=== PATIENT | female | born 1945 | race Caucasian/White ===

== ENCOUNTER 2017-11-25 08:01 | Emergency (ER) | payer MEDICAID | END 2017-11-25 08:59 | disposition home or self-care (01) | LOC: FTE 08:01 | DX: J20.9 Acute bronchitis, unspecified (principal); I10 Essential (primary) hypertension; Z79.82 Long term (current) use of aspirin | CPT/HCPCS: 99284; Z7502 ==

== ENCOUNTER 2017-11-30 11:30 | Emergency (ER) | payer MEDICAID ==
[2017-11-30] MEDS: IPRATROPIUM (NEB) 0.5 MG/2.5 ML AMP HHN (12:07)
[2017-11-30] MEDS: ALBUTEROL 0.083% (NEB) 2.5 MG/3 ML AMP HHN (12:07)
== END 2017-11-30 13:33 | disposition home or self-care (01) ==
LOC: FTE 11:30
DX: J06.9 Acute upper respiratory infection, unspecified (principal); I10 Essential (primary) hypertension; E11.9 Type 2 diabetes mellitus without complications; Z79.82 Long term (current) use of aspirin
CPT/HCPCS: 71045; 94664; 99284-25

== ENCOUNTER 2017-12-09 10:33 | Emergency (ER) | payer MEDICAID ==
[2017-12-09] MEDS: SOD CHLORIDE 0.9% 500 ML IV (11:14)
[2017-12-09 11:18] LABS: ADD MAN DIFF? NO
[2017-12-09 11:21] LABS: WHITE BLOOD COUNT 6.6 10^3/ul (4.8-10.8)
[2017-12-09 11:21] LABS: BASOPHIL # 0.1 10^3/ul (0.0-0.1); BASOPHILS % 0.8 % (0.0-2.0); EOSINOPHILS # 0.1 10^3/ul (0.0-0.5); EOSINOPHILS % 1.4 % (0.0-7.0); HEMATOCRIT 36.1 % (37.0-47.0); HEMOGLOBIN 12.4 g/dl (12.0-16.0); LYMPHOCYTES # 1.1 10^3/ul (0.8-2.9); LYMPHOCYTES % 16.1 % (15.0-51.0); MEAN CORPUSCULAR HEMOGLOBIN 31.8 pg (29.0-33.0); MEAN CORPUSCULAR HGB CONC 34.3 g/dl (32.0-37.0); MEAN CORPUSCULAR VOLUME 92.6 fl (82.0-101.0); MEAN PLATELET VOLUME 9.7 fl (7.4-10.4); MONOCYTE # 0.7 10^3/ul (0.3-0.9); MONOCYTES % 9.9 % (0.0-11.0); NEUTROPHIL # 4.7 10^3/ul (1.6-7.5); NEUTROPHILS % 71.5 % (39.0-77.0); PLATELET COUNT 222 10^3/UL (140-415)
[2017-12-09 11:39] LABS: ALANINE AMINOTRANSFERASE 29 IU/L (13-69); ALBUMIN 3.9 g/dl (3.3-4.9); ALKALINE PHOSPHATASE 80 IU/L (42-121); ANION GAP 14 (8-16); ASPARTATE AMINO TRANSFERASE 18 IU/L (15-46); BILIRUBIN,INDIRECT 0.8 mg/dl (0-1.1); BILIRUBIN,TOTAL 0.8 mg/dl (0.2-1.3); BLOOD UREA NITROGEN 10 mg/dl (7-20); CALCIUM 8.9 mg/dl (8.4-10.2); CARBON DIOXIDE 26 mmol/L (21-31); CHLORIDE 103 mmol/L (97-110); CREATININE 0.64 mg/dl (0.44-1.00); GLUCOSE 140 mg/dl (70-220); POTASSIUM 3.5 mmol/L (3.5-5.1); SODIUM 139 mmol/L (135-144); TOTAL PROTEIN 6.9 g/dl (6.1-8.1)
[2017-12-09 11:42] LABS: INR 0.96; PROTIME 12.9 Sec (11.9-14.9)
[2017-12-09 11:44] LABS: LACTIC ACID 1.8 mmol/L (0.5-2.0)
[2017-12-09 12:03] LABS: TROPONIN-I < 0.120 ng/ml (0.00-0.12)
[2017-12-09] MEDS: METHYLPREDNISOLONE 125 MG INJ IV (12:13)
[2017-12-09] MEDS: IPRATROPIUM (NEB) 0.5 MG/2.5 ML AMP INH (12:13)
[2017-12-09] MEDS: ALBUTEROL 0.5% (NEB) 2.5 MG/0.5 ML AMP INH (12:13)
[2017-12-09 12:21] LABS: ADD UMIC YES; UR ASCORBIC ACID NEGATIVE (NEGATIVE); UR BILIRUBIN (Dip) NEGATIVE (NEGATIVE); UR BLOOD (Dip) 1+ mg/dL (NEGATIVE); UR CLARITY CLEAR (CLEAR); UR COLOR YELLOW (YELLOW); UR GLUCOSE (Dip) NEGATIVE (NEGATIVE); UR KETONES (Dip) NEGATIVE (NEGATIVE); UR LEUKOCYTE ESTERASE (Dip) NEGATIVE Leu/ul (NEGATIVE); UR MUCUS FEW /HPF (NONE SEEN); UR NITRITE (Dip) NEGATIVE (NEGATIVE); UR RBC 2 /HPF (0-5); UR SPECIFIC GRAVITY (Dip) 1.008 (1.003-1.030); UR TOTAL PROTEIN (Dip) NEGATIVE (NEGATIVE); UR UROBILINOGEN (Dip) NEGATIVE (NEGATIVE); UR WBC 0 /HPF (0-5)
== END 2017-12-09 13:51 | disposition home or self-care (01) ==
LOC: E/R 10:33
DX: J18.1 Lobar pneumonia, unspecified organism (principal); J20.9 Acute bronchitis, unspecified; I10 Essential (primary) hypertension; R07.9 Chest pain, unspecified; R53.83 Other fatigue; Z79.82 Long term (current) use of aspirin
CPT/HCPCS: 36415; 71045; 80053; 81001; 83605; 84484; 85025; 85610; 85730; 87040; 87086; 87400; 93005; 94644; 96374; 99285-25

== ENCOUNTER 2017-12-11 15:12 | Inpatient (IN) | payer MEDICAID ==
[2017-12-11] MEDS: AZITHROMYCIN 500MG/NS (PMX) 250 ML IVPB (16:14)
[2017-12-11] MEDS: SOD CHLORIDE 0.9% 500 ML IV (16:14)
[2017-12-11] MEDS: ALBUTEROL 0.083% (NEB) 2.5 MG/3 ML AMP NEB (16:38)
[2017-12-11] MEDS: IPRATROPIUM (NEB) 0.5 MG/2.5 ML AMP NEB (16:38)
[2017-12-11 16:42] LABS: ADD MAN DIFF? NO
[2017-12-11 16:44] LABS: BASOPHILS % 0.2 % (0.0-2.0); HEMATOCRIT 37.1 % (37.0-47.0); HEMOGLOBIN 12.5 g/dl (12.0-16.0); LYMPHOCYTES # 2.5 10^3/ul (0.8-2.9); LYMPHOCYTES % 19.5 % (15.0-51.0); MEAN CORPUSCULAR HEMOGLOBIN 31.2 pg (29.0-33.0); MEAN CORPUSCULAR HGB CONC 33.7 g/dl (32.0-37.0); MEAN CORPUSCULAR VOLUME 92.5 fl (82.0-101.0); MEAN PLATELET VOLUME 10.1 fl (7.4-10.4); MONOCYTES % 8.1 % (0.0-11.0); NEUTROPHIL # 9.1 10^3/ul (1.6-7.5); NEUTROPHILS % 71.7 % (39.0-77.0); PLATELET COUNT 274 10^3/UL (140-415); RED BLOOD COUNT 4.01 10^6/ul (4.20-5.40); RED CELL DISTRIBUTION WIDTH 13.3 % (11.5-14.5)
[2017-12-11 16:44] LABS: WHITE BLOOD COUNT 12.7 10^3/ul (4.8-10.8)
[2017-12-11 17:03] LABS: LACTIC ACID 1.5 mmol/L (0.5-2.0)
[2017-12-11 17:04] LABS: ANION GAP 13 (8-16); BLOOD UREA NITROGEN 18 mg/dl (7-20); CALCIUM 8.6 mg/dl (8.4-10.2); CARBON DIOXIDE 28 mmol/L (21-31); CHLORIDE 104 mmol/L (97-110); CREATININE 0.81 mg/dl (0.44-1.00); GLUCOSE 115 mg/dl (70-220); POTASSIUM 3.4 mmol/L (3.5-5.1); SODIUM 142 mmol/L (135-144)
[2017-12-11 17:58] LABS: ADD UMIC YES; UR ASCORBIC ACID NEGATIVE (NEGATIVE); UR BACTERIA FEW /HPF (NONE SEEN); UR BILIRUBIN (Dip) NEGATIVE (NEGATIVE); UR BLOOD (Dip) 1+ mg/dL (NEGATIVE); UR CLARITY CLEAR (CLEAR); UR COLOR COLORLESS (YELLOW); UR GLUCOSE (Dip) NEGATIVE (NEGATIVE); UR KETONES (Dip) NEGATIVE (NEGATIVE); UR LEUKOCYTE ESTERASE (Dip) NEGATIVE Leu/ul (NEGATIVE); UR NITRITE (Dip) NEGATIVE (NEGATIVE); UR RBC 0 /HPF (0-5); UR SPECIFIC GRAVITY (Dip) 1.005 (1.003-1.030); UR TOTAL PROTEIN (Dip) NEGATIVE (NEGATIVE); UR UROBILINOGEN (Dip) NEGATIVE (NEGATIVE); UR WBC 0 /HPF (0-5)
[2017-12-11] MEDS: VANCOMYCIN 1.5 GM in SOD CHLORIDE 0.9% 250 ML IVPB (18:09)
[2017-12-11] MEDS: ALBUTEROL 0.083% (NEB) 2.5 MG/3 ML AMP HHN (18:54)
[2017-12-11] MEDS: IPRATROPIUM (NEB) 0.5 MG/2.5 ML AMP HHN (18:54)
[2017-12-11] MEDS: POTASSIUM CHLORIDE 30 MEQ in SOD CHLORIDE 0.45% 1,000 ML IV (18:55)
[2017-12-11] MEDS ORDERED: NACL 0.9% 3 ML SYG IV (19:30)
[2017-12-11] MEDS: HYDROCODONE/APAP (5/325) TAB PO (19:49)
[2017-12-11] MEDS: ACETAMINOPHEN 325 MG TAB PO (19:49)
[2017-12-11] MEDS: CEFTRIAXONE 1 GM/50 ML (PMX) 50 ML IV (21:40)
[2017-12-12 06:09] LABS: ADD MAN DIFF? NO
[2017-12-12 06:21] LABS: BASOPHILS % 0.4 % (0.0-2.0); EOSINOPHILS % 0.4 % (0.0-7.0); HEMATOCRIT 33.8 % (37.0-47.0); HEMOGLOBIN 11.3 g/dl (12.0-16.0); LYMPHOCYTES # 1.1 10^3/ul (0.8-2.9); LYMPHOCYTES % 20.2 % (15.0-51.0); MEAN CORPUSCULAR HEMOGLOBIN 31.3 pg (29.0-33.0); MEAN CORPUSCULAR HGB CONC 33.4 g/dl (32.0-37.0); MEAN CORPUSCULAR VOLUME 93.6 fl (82.0-101.0); MEAN PLATELET VOLUME 10.2 fl (7.4-10.4); MONOCYTE # 0.5 10^3/ul (0.3-0.9); MONOCYTES % 8.9 % (0.0-11.0); NEUTROPHIL # 3.9 10^3/ul (1.6-7.5); NEUTROPHILS % 69.7 % (39.0-77.0); PLATELET COUNT 213 10^3/UL (140-415); RED BLOOD COUNT 3.61 10^6/ul (4.20-5.40); RED CELL DISTRIBUTION WIDTH 13.4 % (11.5-14.5)
[2017-12-12 06:21] LABS: WHITE BLOOD COUNT 5.6 10^3/ul (4.8-10.8)
[2017-12-12 06:58] LABS: ANION GAP 14 (8-16); BLOOD UREA NITROGEN 9 mg/dl (7-20); CALCIUM 7.6 mg/dl (8.4-10.2); CARBON DIOXIDE 29 mmol/L (21-31); CHLORIDE 103 mmol/L (97-110); GLUCOSE 88 mg/dl (70-220); MAGNESIUM 1.8 mg/dl (1.7-2.5); PHOSPHORUS 2.9 mg/dl (2.5-4.9); POTASSIUM 3.7 mmol/L (3.5-5.1); SODIUM 142 mmol/L (135-144)
[2017-12-12] MEDS: AZITHROMYCIN 250 MG TAB PO (11:47)
[2017-12-12] MEDS: LORATADINE 10 MG TAB PO (11:47)
[2017-12-12] MEDS: AMLODIPINE 5 MG TAB PO (11:48)
[2017-12-12] MEDS: ASPIRIN (EC) 81 MG TAB PO (11:48)
[2017-12-12] MEDS: ENOXAPARIN 40 MG/0.4 ML SYG SC (11:49)
[2017-12-12 12:29] LABS: ALBUMIN 3.4 g/dl (3.3-4.9)
[2017-12-12] MEDS: CEFTRIAXONE 1 GM/50 ML (PMX) 50 ML IV (20:00)
[2017-12-13] MEDS: ASPIRIN (EC) 81 MG TAB PO (09:11)
[2017-12-13] MEDS: AZITHROMYCIN 250 MG TAB PO (09:11)
[2017-12-13] MEDS: ENOXAPARIN 40 MG/0.4 ML SYG SC (09:12)
[2017-12-13] MEDS: AMLODIPINE 5 MG TAB PO (11:00)
[2017-12-13] MEDS: LORATADINE 10 MG TAB PO (11:00)
[2017-12-13] MEDS: ALBUTEROL/IPRATROPIUM (NEB) 3 ML AMP HHN ×4 (11:24→19:32)
[2017-12-13] MEDS: ALBUTEROL HFA 8 GM INHALER INH (13:30)
[2017-12-13] MEDS ORDERED: ALBUTEROL/IPRATROPIUM (NEB) 3 ML AMP HHN (14:00)
[2017-12-13] MEDS: AMOXICILLIN/CLAV 875 MG TAB PO (21:22)
[2017-12-14] MEDS: ALBUTEROL/IPRATROPIUM (NEB) 3 ML AMP HHN ×5 (07:30→19:57)
[2017-12-14] MEDS: AMOXICILLIN/CLAV 875 MG TAB PO ×2 (10:06→21:06)
[2017-12-14] MEDS: ASPIRIN (EC) 81 MG TAB PO (10:06)
[2017-12-14] MEDS: LORATADINE 10 MG TAB PO (10:06)
[2017-12-14] MEDS: ENOXAPARIN 40 MG/0.4 ML SYG SC (10:08)
[2017-12-14] MEDS: AMLODIPINE 5 MG TAB PO (10:10)
[2017-12-14] MEDS: AZITHROMYCIN 250 MG TAB PO (10:34)
[2017-12-15] MEDS: ALBUTEROL/IPRATROPIUM (NEB) 3 ML AMP HHN ×4 (07:34→16:27)
[2017-12-15] MEDS: AMOXICILLIN/CLAV 875 MG TAB PO (09:32)
[2017-12-15] MEDS: LORATADINE 10 MG TAB PO (09:32)
[2017-12-15] MEDS: AMLODIPINE 5 MG TAB PO (09:37)
[2017-12-15] MEDS: ASPIRIN (EC) 81 MG TAB PO (09:37)
[2017-12-15] MEDS: AZITHROMYCIN 250 MG TAB PO (09:37)
[2017-12-15] MEDS: ENOXAPARIN 40 MG/0.4 ML SYG SC (09:38)
== END 2017-12-15 18:45 | disposition home or self-care (01) | DRG 195 ==
LOC: MS3 17:45 → PP2 12-13 15:23 → FTE 15:12
DX: J18.9 Pneumonia, unspecified organism (principal); I10 Essential (primary) hypertension; E78.00 Pure hypercholesterolemia, unspecified; Y95 Nosocomial condition; Z79.82 Long term (current) use of aspirin
CPT/HCPCS: 71046; 80048; 81001; 82040; 83605; 83735; 84100; 85025; 87040; 87070; 87400; 94640; 94664; 96374; 96375; 99285-25

== ENCOUNTER 2017-12-19 09:00 | Emergency (ER) | payer MEDICAID ==
[2017-12-19] MEDS: predniSONE 20 MG TAB PO (09:39)
[2017-12-19] MEDS: IPRATROPIUM (NEB) 0.5 MG/2.5 ML AMP NEB (09:43)
[2017-12-19] MEDS: ALBUTEROL 0.083% (NEB) 2.5 MG/3 ML AMP NEB (09:43)
[2017-12-19] MEDS: ALBUTEROL 0.083% (NEB) 2.5 MG/3 ML AMP HHN (11:30)
== END 2017-12-19 13:29 | disposition home or self-care (01) ==
LOC: E/R 09:00
DX: R06.00 Dyspnea, unspecified (principal); I10 Essential (primary) hypertension; Z79.82 Long term (current) use of aspirin
CPT/HCPCS: 71045; 94640; 94664; 99284-25

== ENCOUNTER 2017-12-26 09:26 | Emergency (ER) | payer MEDICAID ==
[2017-12-26] MEDS: DEXAMETHASONE 4 MG TAB PO (10:36)
[2017-12-26] MEDS: ALBUTEROL 0.083% (NEB) 2.5 MG/3 ML AMP HHN (10:39)
[2017-12-26] MEDS: IPRATROPIUM (NEB) 0.5 MG/2.5 ML AMP HHN (10:39)
== END 2017-12-26 12:15 | disposition home or self-care (01) ==
LOC: FTE 09:26
DX: J06.9 Acute upper respiratory infection, unspecified (principal); I10 Essential (primary) hypertension
CPT/HCPCS: 71045; 94664; 99283-25

== ENCOUNTER 2018-01-10 09:21 | Emergency (ER) | payer MEDICAID ==
[2018-01-10] MEDS: IPRATROPIUM (NEB) 0.5 MG/2.5 ML AMP HHN (10:44)
[2018-01-10] MEDS: ALBUTEROL 0.083% (NEB) 2.5 MG/3 ML AMP HHN (10:44)
[2018-01-10] MEDS: predniSONE 20 MG TAB PO (10:58)
[2018-01-10] MEDS: ALBUTEROL 0.083% (NEB) 2.5 MG/3 ML AMP NEB (11:39)
[2018-01-10] MEDS: IPRATROPIUM (NEB) 0.5 MG/2.5 ML AMP NEB (11:40)
== END 2018-01-10 13:41 | disposition home or self-care (01) ==
LOC: E/R 09:21 → FTE 13:41
DX: J20.9 Acute bronchitis, unspecified (principal); I10 Essential (primary) hypertension; Z79.82 Long term (current) use of aspirin
CPT/HCPCS: 71045; 94640; 94664; 99285-25

== ENCOUNTER 2018-01-28 09:18 | Emergency (ER) | payer MEDICAID | END 2018-01-28 10:10 | disposition home or self-care (01) | LOC: FTE 09:18 | DX: Z76.0 Encounter for issue of repeat prescription (principal); I10 Essential (primary) hypertension; Z79.82 Long term (current) use of aspirin | CPT/HCPCS: 99281; Z7502 ==

== ENCOUNTER 2018-03-10 14:14 | Emergency (ER) | payer MEDICAID ==
[2018-03-10] MEDS: ACETAMINOPHEN 325 MG TAB PO (15:18)
== END 2018-03-10 17:20 | disposition home or self-care (01) ==
LOC: FTE 14:14
DX: M25.561 Pain in right knee (principal); M25.562 Pain in left knee; I10 Essential (primary) hypertension; Z79.82 Long term (current) use of aspirin
CPT/HCPCS: 73562; 73562-50; 99284-25

== ENCOUNTER 2018-05-25 08:52 | Emergency (ER) | payer MEDICAID | END 2018-05-25 11:21 | disposition home or self-care (01) | LOC: FTE 08:52 | DX: M25.561 Pain in right knee (principal); M25.562 Pain in left knee; I10 Essential (primary) hypertension; Z79.82 Long term (current) use of aspirin | CPT/HCPCS: 73562; 73562-50; 93005; 99284-25 ==

== ENCOUNTER 2018-11-11 07:19 | Emergency (ER) | payer MEDICAID | END 2018-11-11 09:41 | disposition home or self-care (01) | LOC: FTE 07:19 | DX: J02.9 Acute pharyngitis, unspecified (principal); I10 Essential (primary) hypertension; R51 Headache; Z79.82 Long term (current) use of aspirin | CPT/HCPCS: 70450; 72125; 99284-25 ==

== ENCOUNTER 2018-12-30 08:45 | Emergency (ER) | payer MEDICAID ==
[2018-12-30] MEDS: IPRATROPIUM (NEB) 0.5 MG/2.5 ML AMP HHN (09:30)
[2018-12-30] MEDS: ALBUTEROL 0.083% (NEB) 2.5 MG/3 ML AMP HHN (09:30)
[2018-12-30] MEDS: DEXAMETHASONE 10 MG/ML 1 ML INJ IM (09:48)
== END 2018-12-30 11:21 | disposition home or self-care (01) ==
LOC: FTE 11:21
DX: R05 Cough (principal); I10 Essential (primary) hypertension; F17.210 Nicotine dependence, cigarettes, uncomplicated; Z79.82 Long term (current) use of aspirin
CPT/HCPCS: 71045; 94664; 96372; 99284-25

== ENCOUNTER 2019-01-07 10:45 | Emergency (ER) | payer MEDICAID ==
[2019-01-07] MEDS: ALBUTEROL 0.083% (NEB) 2.5 MG/3 ML AMP HHN (13:59)
[2019-01-07] MEDS: DEXAMETHASONE 4 MG TAB PO (14:24)
== END 2019-01-07 14:48 | disposition home or self-care (01) ==
LOC: FTE 10:45
DX: R05 Cough (principal); I10 Essential (primary) hypertension; Z79.82 Long term (current) use of aspirin
CPT/HCPCS: 94664; 99283-25

== ENCOUNTER 2019-04-08 10:00 | Emergency (ER) | payer MEDICAID | END 2019-04-08 11:35 | disposition home or self-care (01) | LOC: E/R 10:00 | DX: Z76.0 Encounter for issue of repeat prescription (principal); I10 Essential (primary) hypertension; Z79.82 Long term (current) use of aspirin | CPT/HCPCS: 99283; Z7502 ==